=== PATIENT | female | born 1995 | race Caucasian/White ===

== ENCOUNTER 2020-07-11 18:04 | Emergency (ER) | payer BC ==
[~2020-07-11] VITALS: Ht 157.5 cm; Wt 54.0 kg
--- NOTE | 2020-07-11 18:36 | NUR ---
POLICE CHIEF AT BEDSIDE
[2020-07-11 18:57] VITALS: BP 124/80
== END 2020-07-11 18:57 | disposition home or self-care (01) ==
LOC: ER 18:11
DX: S31.139A Puncture wound of abdominal wall without foreign body, unspecified quadrant without penetration into peritoneal cavity, initial encounter (principal); E11.9 Type 2 diabetes mellitus without complications; Z03.823 Encounter for observation for suspected inserted (injected) foreign body ruled out; X58.XXXA Exposure to other specified factors, initial encounter; Y93.89 Activity, other specified; Y92.89 Other specified places as the place of occurrence of the external cause; Y99.8 Other external cause status
CPT/HCPCS: 74018